=== PATIENT | male | born 1985 | race Caucasian/White ===

== ENCOUNTER 2021-07-06 16:22 | Emergency (ER) | payer MEDICAID ==
[~2021-07-06] VITALS: Ht 175.3 cm; Wt 75.0 kg
[2021-07-06 17:10] VITALS: BP 140/87
[2021-07-06] MEDS ORDERED: IBUP-2029 MT (17:20)
== END 2021-07-06 17:29 | disposition home or self-care (01) ==
LOC: ER 16:22
DX: B34.9 Viral infection, unspecified (principal); R03.0 Elevated blood-pressure reading, without diagnosis of hypertension
CPT/HCPCS: 99282